=== PATIENT | male | born 1960 ===

== ENCOUNTER 2018-10-21 09:43 | Emergency (ER) | payer MEDICAID, OTHER ==
--- NOTE | 2018-10-21 10:44 | ED PDOC ---
Arrival/HPI - General Chief Complaint: Back Pain Time Seen by Provider: 10/21/18 09:48 Historian: Patient - History of Present Illness Narrative History of Present Illness (Text): 10/21/18 10:44 58 y/o M, with past medical history of hypertension and diabetes, presents to the Emergency department complaining of left sided upper back pain since yesterday. Patient reports onset of symptoms at work while reaching for something, which resolved spontaneously with progression of time. However, as per patient, the symptoms returned this morning, associated with radiation of pain throughout the left side and worsening with movement of extremities, prompting him to present to the ED for medical evaluation. Patient denies similar symptoms in the past and describes the pain as a "nerve pain". Patient denies taking any pain medication prior to arrival. Patient denies any other associated somatic complaints. Patient denies any fevers, chills, headache, dizziness, chest pain, shortness of breath, dyspnea on exertion, cough, abdo narda pain, nausea, vomiting, diarrhea, urinary or bowel incontinence, neck pain, or any other complaints. PMD: Dr. Pamela Holbrook, [place] Time/Duration: 24 hours Symptom Onset: Gradual Symptom Course: Unchanged Quality: Aching Activities at Onset: Light Context: Work Past Medical History - Provider Review Nursing Documentation Reviewed: Yes - Cardiac Hx Hypertension: Yes - Endocrine/Metabolic Hx Diabetes Mellitus Type 2: Yes - Psychiatric Hx Substance Use: No - Surgical History Hx Appendectomy: Yes - Anesthesia Hx Anesthesia: Yes Hx Anesthesia Reactions: No Hx Malignant Hyperthermia: No Family/Social History - Physician Review Nursing Documentation Reviewed: Yes Family/Social History: Unknown Family HX Smoking Status: Never Smoked Hx Alcohol Use: Yes Frequency of alcohol use: Socially Hx Substance Use: No Allergies/Home Meds Allergies/Adverse Reactions: Allergies No Known Allergies Allergy (Verified 10/21/18 09:50) Review of Systems - Physician Review All systems were reviewed & negative as marked: Yes - Review of Systems Constitutional: absent: Fevers Respiratory: absent: SOB, Cough Cardiovascular: absent: Chest Pain Gastrointestinal: absent: Abdominal Pain, Diarrhea, Nausea, Vomiting Genitourinary Male: absent: Dysuria, Urinary Output Changes Musculoskeletal: Back Pain (left sided upper back pain). absent: Neck Pain Skin: absent: Rash Neurological: absent: Headache, Dizziness, Focal Weakness Physical Exam Appearance: Positive for: Well-Appearing, Non-Toxic, Comfortable Pain Distress: None Mental Status: Positive for: Alert and Oriented X 3 - Systems Exam Head: Present: Atraumatic, Normocephalic Pupils: Present: PERRL Extroacular Muscles: Present: EOMI Conjunctiva: Present: Normal Neck: Present: Normal Range of Motion. No: MIDLINE TENDERNESS, Paraspinal Tenderness Respiratory/Chest: Present: Clear to Auscultation, Good Air Exchange. No: Respiratory Distress, Accessory Muscle Use Cardiovascular: Present: Regular Rate and Rhythm, Normal S1, S2. No: Murmurs Abdomen: No: Tenderness, Distention, Peritoneal Signs Back: Present: Paraspinal Tenderness (paraspinal tenderness to thoracic region). No: Midline Tenderness, Pain with Leg Raise Upper Extremity: Present: Normal Inspection. No: Cyanosis, Edema Lower Extremity: Present: Normal Inspection. No: Edema Neurological: Present: GCS=15, CN II-XII Intact, Speech Normal Skin: Present: Warm, Dry, Normal Color. No: Rashes Psychiatric: Present: Alert, Oriented x 3, Normal Insight, Normal Concentration Medical Decision Making ED Course and Treatment: 10/21/18 10:45 Impression: 58 year old male presents to the ED complaining of "nerve pain" to upper left back. Differential Diagnosis included but are not limited to: -- Sciatica -- Stenosis -- Musculoskeletal Plan: -- EKG -- Lidocaine 5% -- Toradol -- Valium -- Reassess and disposition Prior Visits: Notes and results from previous visits were reviewed. Progress Notes: - Medication Orders Current Medication Orders: Lidocaine (Lidoderm) 1 ea TD ONCE ONE Stop: 10/22/18 10:10 Discontinued Medications Diazepam (Valium) 5 mg PO ONCE ONE; Protocol Stop: 10/21/18 10:09 Ketorolac Tromethamine (Toradol) 60 mg IM STAT STA Stop: 10/21/18 10:09 - Scribe Statement The provider has reviewed the documentation as recorded by the Ashley Alston. All medical record entries made by the Scribruthie were at my direction and personally dictated by me. I have reviewed the chart and agree that the record accurately reflects my personal performance of the history, physical exam, m edical decision making, and the department course for this patient. I have also personally directed, reviewed, and agree with the discharge instructions and disposition. Disposition/Present on Arrival - Present on Arrival Any Indicators Present on Arrival: No History of DVT/PE: No History of Uncontrolled Diabetes: No Urinary Catheter: No History of Decub. Ulcer: No History Surgical Site Infection Following: None - Disposition Have Diagnosis and Disposition been Completed?: Yes Diagnosis: Back pain Disposition: HOME/ ROUTINE Disposition Time: 12:25 Patient Plan: Discharge Condition: IMPROVED Discharge Instructions (ExitCare): Upper Back Pain (DC) Print Language: [place] Additional Instructions: All medical record entries made by the Hannahibruthie were at my direction and personally dictated by me. I have reviewed the chart and agree that the record accurately reflects my personal performance of the history, physical exam, medical decision making, and the department course for this patient. I have also personally directed, reviewed, and agree with the discharge instructions and disposition. Prescriptions: Cyclobenzaprine [Flexeril] 5 mg PO PRN PRN #6 tab PRN Reason: Muscle Spasm Lidocaine 5% [Lidoderm] 1 ea TD Q12 #5 patch Naproxen 500 mg PO BID #6 tab Referrals: FAMILY PROVIDER,NO [Primary Care Provider] - Follow up with primary Forms: LOANZ (Hebrew)
[2018-10-21 14:22] VITALS: RESP 18; TEMP 98.6
[2018-10-21 14:23] VITALS: BP 129/90; PULSE 64; O2SAT 99
[2018-10-22] MEDS ORDERED: Lidocaine 5% Patch TD ONE (10:09)
--- NOTE | 2018-10-22 16:31 | CARD ---
APPROVED REPORT Date of service: 10/21/2018 EKG Measurement Heart [id number] <Conclusion> Poor data quality, interpretation may be adversely affected Normal sinus rhythm Normal ECG
== END 2018-10-21 14:23 | disposition home or self-care (01) ==
LOC: ED 09:43
DX: M54.6 Pain in thoracic spine (principal); I10 Essential (primary) hypertension
CPT/HCPCS: 93005; 96372; 99283; J1885